=== PATIENT | male | born 1985 | race African-American/Black ===

== ENCOUNTER 2019-02-28 13:42 | Emergency (ER) | payer MEDICAID ==
[~2019-02-28 13:42] MED LIST: AMOXICILLIN500 MG PO; ANAPROX DS550 MG PO; AUGMENTIN 875 M1 TAB PO; CLEOCIN HCL300 MG PO; COMPAZINE10 MG PO; FLEXERIL10 MG PO; HYDROCODONE BIT1 T11 PO; MOTRIN600 MG PO; MOTRIN800 MG PO; NKHM; PEN-VEE K500 MG PO; PEN-VK500 MG PO; PENICILLIN VK500 MG PO; Peridex 473 ML473 ML PO; TRAMADOL HCL50 MG PO; ULTRAM50 MG PO; VIBRAMYCIN100 MG PO; VICODIN 5/500 505 MG PO; VICODIN 500 MG-1 TAB PO; VICODIN ES 7501 TAB PO; WYMOX500 MG PO; ZITHROMAX Z PA250 MG PO
[2019-02-28] MEDS ORDERED: IBUPROFEN600 MG PO (15:21)
== END 2019-02-28 15:23 | disposition home or self-care (01) ==
LOC: ED 13:42
DX: S43.401A Unspecified sprain of right shoulder joint, initial encounter (principal); G89.29 Other chronic pain; Z79.2 Long term (current) use of antibiotics; Z79.899 Other long term (current) drug therapy; X58.XXXA Exposure to other specified factors, initial encounter; Y93.89 Activity, other specified; Y92.89 Other specified places as the place of occurrence of the external cause; Y99.8 Other external cause status

== ENCOUNTER 2019-12-31 21:52 | Emergency (ER) | payer OTHER ==
[~2019-12-31] VITALS: Ht 185.4 cm; Wt 97.5 kg
[~2019-12-31 21:52] MED LIST changes: +IBUPROFEN600 MG PO
[2020-01-01] MEDS ORDERED: ROBAXIN-750750 MG PO (00:46)
[2020-01-01] MEDS ORDERED: NORCO 5-325 TA1 EACH PO (00:46)
[2020-01-01] MEDS ORDERED: MEDROL DOSEPAK4 MG PO (00:46)
== END 2020-01-01 01:04 | disposition home or self-care (01) ==
LOC: ED 21:52
DX: S39.012A Strain of muscle, fascia and tendon of lower back, initial encounter (principal); X58.XXXA Exposure to other specified factors, initial encounter; Y93.89 Activity, other specified; Y92.89 Other specified places as the place of occurrence of the external cause; Y99.8 Other external cause status

== ENCOUNTER 2020-03-05 11:48 | Emergency (ER) | payer OTHER ==
[~2020-03-05] VITALS: Ht 185.4 cm; Wt 83.9 kg
[~2020-03-05 11:48] MED LIST changes: +MEDROL DOSEPAK4 MG PO; +NORCO 5-325 TA1 EACH PO; +ROBAXIN-750750 MG PO
[2020-03-05] MEDS ORDERED: Motrin,Rufen800 MG PO (13:08)
[2020-03-05] MEDS ORDERED: MEDROL DOSEPAK4 MG PO (13:08)
[2020-03-05] MEDS ORDERED: CYCLOBENZAPRINE5 M3 PO (13:08)
== END 2020-03-05 13:17 | disposition home or self-care (01) ==
LOC: ED 11:48
DX: M54.9 Dorsalgia, unspecified (principal); F17.200 Nicotine dependence, unspecified, uncomplicated; Z79.899 Other long term (current) drug therapy

== ENCOUNTER 2020-05-22 14:21 | Emergency (ER) | payer OTHER ==
[~2020-05-22] VITALS: Ht 185.4 cm; Wt 88.5 kg
[~2020-05-22 14:21] MED LIST changes: +CYCLOBENZAPRINE5 M3 PO; +Motrin,Rufen800 MG PO
== END 2020-05-22 16:05 | disposition home or self-care (01) ==
LOC: ED 14:21
DX: R11.10 Vomiting, unspecified (principal); R19.7 Diarrhea, unspecified; F17.200 Nicotine dependence, unspecified, uncomplicated

== ENCOUNTER → 2020-07-15 | Outpatient (CLI) | payer OTHER | END | disposition home or self-care (01) | LOC: COVID19 08:07 | PROVIDERS: ATTEND Internal Medicine | DX: Z11.52 Encounter for screening for COVID-19 (principal) ==

== ENCOUNTER 2021-03-25 11:17 | Emergency (ER) | payer OTHER ==
[~2021-03-25] VITALS: Ht 185.4 cm; Wt 89.8 kg
[2021-03-25 12:01] LABS: BILIRUBIN Negative (Negative); BLOOD Negative (Negative); CLARITY Clear (Clear); COLOR Yellow (Yellow); GLUCOSE Negative (Negative); KETONE Negative (Negative); LEUKO ESTERASE Negative (Negative); NITRITE Negative (Negative); PH 7.5 (4.5-8.0); UROBILINOGEN 0.2 E.U./dl (0.0-1.0)
[2021-03-25 12:24] LABS: RBC 0-2 rbc/hpf (0-2)
== END 2021-03-25 12:39 | disposition home or self-care (01) ==
LOC: ED 11:17
PROVIDERS: Nurse Practitioner Family
DX: Z20.2 Contact with and (suspected) exposure to infections with a predominantly sexual mode of transmission (principal)

== ENCOUNTER 2021-04-16 16:56 | Emergency (ER) | payer OTHER ==
[~2021-04-16] VITALS: Wt 89.8 kg
[2021-04-16 18:58] LABS: BILIRUBIN Negative (Negative); BLOOD Negative (Negative); CLARITY Clear (Clear); COLOR Yellow (Yellow); GLUCOSE Negative (Negative); KETONE 1+ (Negative); LEUKO ESTERASE Negative (Negative); NITRITE Negative (Negative); PH 7.5 (4.5-8.0); SPECIFIC GRAVITY >= 1.030 (1.001-1.030)
[2021-04-16 19:15] LABS: BACTERIA TRACE; EPITHELIAL CELLS 0-2; MUCOUS 4+
[2021-04-16] MEDS ORDERED: PREDNISONE20 M1 PO (20:23)
[2021-04-16] MEDS ORDERED: METHOCARBAMOL500 M1 PO (20:23)
== END 2021-04-16 20:30 | disposition home or self-care (01) ==
LOC: ED 16:56
PROVIDERS: Physician Assistant
DX: M54.50 Low back pain, unspecified (principal)

== ENCOUNTER 2021-09-19 16:29 | Emergency (ER) | payer OTHER ==
[~2021-09-19] VITALS: Wt 86.2 kg
[~2021-09-19 16:29] MED LIST changes: +METHOCARBAMOL500 M1 PO; +PREDNISONE20 M1 PO
== END 2021-09-19 17:26 | disposition home or self-care (01) ==
LOC: ED 16:29
DX: S61.211A Laceration without foreign body of left index finger without damage to nail, initial encounter (principal); W45.8XXA Other foreign body or object entering through skin, initial encounter; Y93.89 Activity, other specified; Y92.89 Other specified places as the place of occurrence of the external cause; Y99.8 Other external cause status

== ENCOUNTER 2022-10-01 02:29 | Emergency (ER) | payer SELFPAY ==
[~2022-10-01] VITALS: Ht 182.8 cm; Wt 81.6 kg
[2022-10-01 02:52] LABS: BILIRUBIN Negative (Negative); BLOOD Negative (Negative); CLARITY Clear (Clear); COLOR Yellow (Yellow); GLUCOSE Negative (Negative); KETONE Trace (Negative); LEUKO ESTERASE Negative (Negative); NITRITE Negative (Negative); SPECIFIC GRAVITY 1.025 (1.001-1.030)
[2022-10-01 03:24] LABS: RBC 0-2 rbc/hpf (0-2); WBC 0-2 wbc/hpf (0-5)
[2022-10-01] MEDS ORDERED: NAPROXEN250 MG PO (03:28)
== END 2022-10-01 03:35 | disposition home or self-care (01) ==
LOC: ED 02:29
PROVIDERS: Internal Medicine
DX: N50.812 Left testicular pain (principal); Z79.899 Other long term (current) drug therapy

== ENCOUNTER 2023-03-02 14:17 | Emergency (ER) | payer SELFPAY ==
[~2023-03-02] VITALS: Ht 182.8 cm; Wt 88.5 kg
[~2023-03-02 14:17] MED LIST changes: +NAPROXEN250 MG PO
== END 2023-03-02 15:07 | disposition home or self-care (01) ==
LOC: ED 14:17
DX: M54.50 Low back pain, unspecified (principal); Z87.891 Personal history of nicotine dependence

== ENCOUNTER 2024-01-22 16:46 | Emergency (ER) | payer MEDICAID ==
[~2024-01-22] VITALS: Ht 185.4 cm; Wt 81.6 kg
[2024-01-22] MEDS ORDERED: ACETAMINOPHEN 325 MG TAB PO ONE (17:15)
== END 2024-01-22 18:40 | disposition left against medical advice (07) ==
LOC: ED 16:46
DX: S69.91XA Unspecified injury of right wrist, hand and finger(s), initial encounter (principal); Z53.29 Procedure and treatment not carried out because of patient's decision for other reasons; X50.0XXA Overexertion from strenuous movement or load, initial encounter; Y93.89 Activity, other specified; Y92.89 Other specified places as the place of occurrence of the external cause; Y99.8 Other external cause status

== ENCOUNTER 2024-02-04 10:33 | Emergency (ER) | payer MEDICAID ==
[~2024-02-04] VITALS: Ht 185.4 cm; Wt 89.8 kg
[2024-02-04] MEDS ORDERED: MELOXICAM5 MG PO (11:38)
[2024-02-04] MEDS ORDERED: methylPREDNISolone sod succ 125 MG VIAL IM ONE (11:40)
[2024-02-04] MEDS ORDERED: Acetaminophen/Oxycodone 5 MG/325 MG TABLET PO ONE (11:40)
== END 2024-02-04 11:57 | disposition home or self-care (01) ==
LOC: ED 10:33
DX: M54.50 Low back pain, unspecified (principal); M79.605 Pain in left leg

== ENCOUNTER 2024-04-23 09:00 | Emergency (ER) | payer MEDICAID ==
[~2024-04-23] VITALS: Ht 182.8 cm; Wt 88.5 kg
[~2024-04-23 09:00] MED LIST changes: +MELOXICAM5 MG PO
[2024-04-23] MEDS ORDERED: Albuterol Sulfate 2.5 MG/3 ML VIAL NEB ONE (09:10)
[2024-04-23] MEDS ORDERED: SODIUM CHLORIDE 0.9% 1,000 ML IV ONE (09:10)
== END 2024-04-23 09:22 | disposition left against medical advice (07) ==
LOC: ED 09:00
DX: R06.02 Shortness of breath (principal); Z53.29 Procedure and treatment not carried out because of patient's decision for other reasons